=== PATIENT | female | born 1935 | race Caucasian/White ===

== ENCOUNTER 2021-10-20 10:45 | Emergency (ER) | payer OTHER, MEDICARE ==
--- OUTSIDE RECORDS SUMMARY | 2021-10-20 10:48 | XMS REPORT | Continuity of Care Document ---
:1935 Author Organization [facility] t Address [address] [place] [address] Care Team Providers Name Role Phone ELISHA ATKINSON Primary Care Physician Unavailable Goldfarb_R Attending Clinician Unavailable Ramesh Attending Clinician [phone] Julieth FLOOD Attending Clinician Unavailable Goldfarb_R Admitting Clinician Unavailable Payers Payer Name Policy Type Policy Number Effective Date Expiration Date S claudy MEDICARE [place]: [id number] 2002 [place] 00:00:00 [facility] [id number] 2018 OPTIONS (MEDICARE 00:00:00 SUPPLEMENT) Problems This patient has no known problems. Allergies, Adverse Reactions, Alerts Allergy Allergy Status Severity Reaction(s) Onset Inactive Treating Comm ents Source Name Type Date Date Clinician MORPHINE DRUG Active Hallucinates Un lulu INGREDI 01-05 [facility] 00[facility]00: [place] [facility] Medications Ordered Filled Start Stop Current Ordering Indication Dosage Frequency Signature Comments Components Source Medication Medication Date Date Medication? Clinician (SIG) Name Name Macrobid Macrobid 2018-07 2019- No Grace [address] [facility] 206 12-13 Jamshid at bedtime Luke s - 00:00: 00:00 with food [facility] 00 [facility] Immunizations Ordered Filled Immunization Date Status Comments Sourc e Immunization Name Name FluAD FluAD 2018-06-03 Completed [facility] - 00:00:00 [facility] Outpatient [facility] Procedures This patient has no known procedures. Encounters Start End Encounter Admission Attending Care Care Encounter Source Date/Time Date/Time Type Type Clinicians Facility Department ID 2021-05-18 2021-05-18 Outpatient Goldfarb_R [facility] [id number] [facility] 04:40:00 04:40:00 [id number] [facility] 2021-05-12 2021-05-12 Outpatient Goldfarb_R [facility] [id number] [facility] 12:27:00 12:27:00 [id number] [facility] 2021-05-08 2021-05-08 Outpatient Goldfarb_R [facility] [id number] [facility] 10:44:00 10:44:00 [id number] [facility] 2021-05-08 2021-05-08 Outpatient Ramesh, [facility]U [facility] [id number] 00:00:00 00:00:00 Brandon [id number] 2020 2020 Outpatient Goldfarb_R [facility] [id number] [facility] 12:19:00 12:19:00 [id number] [facility] 2020-11-14 2020-11-14 Outpatient Goldfarb_R [facility] [id number] [facility] 11:11:00 11:11:00 [id number] [facility] 2020-11-14 2020-11-14 Outpatient Ramesh, [facility]U [facility]U [id number] 00:00:00 00:00:00 Brandon [id number] 2020-09-25 2020-09-25 Outpatient Ba FLOOD [facility] [id number] [facility] 09:10:00 17:24:47 MEGHAN [facility] 2020-08-28 2020-08-28 Outpatient Ba FLOOD [facility] [id number] [facility] 09:30:00 09:30:00 [facility] 2020-08-25 2020-08-25 Outpatient [facility] [id number] [facility] 14:00:00 14:00:00 [id number] [facility] 2020-06-15 2020-06-[address] [facility] [id number] [facility] 2019-06-08 2019-06-08 [facility] [id number] [facility] 08:42:00 08:42:00 t Specialty/U Jazmin kes - Specialty rology [facility] /Urology Clinic l Clinic Outpati ent Clinics 2019-06-05 2019-06-05 Outpatient Niya Núñez [id number] [facility] 13[facility]44[facility]00 13:44:[address] [facility] l Outpati ent Clinics 2019-06-01 2019-06-01 [facility] [id number] 11:00:00 11:00:00 t Specialty/U Jazmin kes - Specialty rology Memori [facility] /Urology Clinic l Clinic Outpati ent Clinics 2019-05-21 2019-05-21 [facility] [id number] [address] 17:23:00 17:23:00 t PodPoster s - Drive [facility] l Medicine Outpati ent Clinics 2019-05-21 2019-05-21 [facility] [id number] [address] 11:00:00 11:00:00 t PodPoster s - Fetch It [facility] l Medicine Outpati ent Clinics 2019-04-27 2019-04-27 [facility] [id number] 13:17:00 13:17:00 t Specialty/U Jazmin kes - Specialty rology Memori a /Urology Clinic l Clinic Outpati ent Clinics 2019-04-21 2019-04-21 [facility] [id number] 09:30:00 09:30:00 t Specialty/U Jazmin kes - Specialty rology Memori a /Urology Clinic l Clinic Outpati ent Clinics 2019-03-31 2019-03-31 [facility] [id number] [facility] [address] 11:00:00 11:00:00 t PodPoster s - [facility] l Medicine Outpati ent Clinics 2019-03-11 2019-03-11 [facility] [id number] 10:30:00 10:30:00 t Specialty/U Jazmin kes - Specialty rology Memori a /Urology Clinic l Clinic Outpati ent Clinics 2019-03-05 2019-03-05 [facility] [id number] 09:40:00 09:40:00 t Project Bionic [facility] Outpati ent Clinics 2019-01-20 2019-01-20 [facility] [id number] 10:00:00 10:00:00 t Specialty/U Jazmin kes - Specialty rology Memori a /Urology Clinic l Clinic Outpati ent Clinics 2018-12-22 2018-12-22 [facility] [id number] 11:45:00 11:45:00 t Specialty/U Jazmin kes - Specialty rology Memori a /Urology Clinic l Clinic Outpati ent Clinics 2018-12-11 2018-12-11 [facility] [id number] 11:00:00 11:00:00 t Specialty/U Jazmin kes - Specialty rology Memori [facility] /Urology Clinic l Clinic Outpati ent Clinics 2018-12-02 2018-12-02 [facility] [id number] 09:00:00 09:00:00 t Project Bionic [facility] Outpati ent Clinics 2018-11-16 2018-11-16 [facility] [id number] 11:12:00 11:12:00 t Urgent Ur[facility] 2018-11-16 2018-11-16 [facility] [id number] 10:10:00 10:10:00 t Urgent Urgent Care L [facility] - Care [facility] l Outpati ent Clinics 2018-11-16 2018-11-16 [facility] [id number] 09:15:00 09:15:00 t Urgent Urgent Care L u[facility] - Care Clinic [facility] l Outpati ent Clinics 2018-09-02 2018-09-02 [facility] [id number] 10:00:00 10:00:00 t [employer] [facility] Medicine Medicine Outpati ent Clinics 2018-08-16 2018-08-16 [facility] [id number] [facility] 10:15:00 10:15:00 t Urgent Urgent Care L u[facility] - Care Clinic [facility] Clinic l Outpati ent Clinics 2018-08-12 2018-08-12 [facility] [id number] 15:01:00 15:01:00 t [employer]ley [employer] [facility] Medicine Outpati ent Clinics 2018-08-12 2018-08-12 [facility] [id number] 10:30:00 10:30:00 t [employer] [facility] Medicine Outpati ent Clinics 2018-08-07 2018-08-07 [facility] [id number] 14:42:00 14:42:00 t Urgent Urgent Care L [facility] - Care Clinic [facility] Clinic l Outpati ent Clinics 2018-08-07 2018-08-07 [facility] [id number] [facility] 14:08:00 14:08:00 t Urgent Urgent Care L u[facility] - Care Clinic [facility] Clinic l Outpati ent Clinics 2018-06-03 2018-06-03 [facility] [id number] [facility] 09:30:00 09:30:00 t [employer] [facility] Medicine Outpati ent Clinics 2018-03-06 2018-03-06 [facility] [id number] 18:41:00 18:41:00 t [employer] [facility] Medicine Medicine Outpati ent Clinics 2018-03-04 2018-03-04 [facility] [id number] 09:45:00 09:45:00 t Crowley [employer] s - Fetch It [facility] Medicine Outpati ent Clinics 2017-12-04 2017-12-04 [facility] [id number] 10:30:00 10:30:00 t Crowley [employer] s - Drive [facility] Medicine Outpati ent Clinics 2017-12-04 2017-12-04 [facility] [id number] [facility] 10:30:00 10:30:00 t [employer] [facility] Medicine Outpati ent Clinics Results This patient has no known results.
--- NOTE | 2021-10-20 11:50 | ER ---
Nurse's Notes [facility] Name: Mehreen Love Age: 85 yrs Sex: Female : 1935 Arrival Date: 10/20/2021 Time: 10:50 Bed 12 Private MD: Diagnosis: Acute pharyngitis, unspecified Presentation: 10/20 10:57 Chief complaint: Patient states: has a real raspy throat , has been around someone who iw had strep throat. Coronavirus screen: At this time, the client does not indicate any symptoms associated with coronavirus-19. Ebola Screen: Patient negative for fever greater than or equal to 101.5 degrees Fahrenheit, and additional compatible Ebola Virus Disease symptoms Patient denies exposure to infectious person. Patient denies travel to an Ebola-affected area in the 21 days before illness onset. No symptoms or risks identified at this time. Initial Sepsis Screen: Does the patient meet any 2 criteria? No. Patient's initial sepsis screen is negative. Does the patient have a suspected source of infection? No. Patient's initial sepsis screen is negative. Risk Assessment: Do you want to hurt yourself or someone else? Patient reports no desire to harm self or others. Onset of symptoms was October 19, 2021. 10:57 Method Of Arrival: Ambulatory iw 10:57 Acuity: SEPIDEH 4 iw Historical: - Allergies: 10:58 No Known Allergies; iw - PMHx: 10:58 Diabetes - NIDDM; Hypertension; iw - Immunization history:: Adult Immunizations up to date. - Social history:: Smoking status: . Screenin:10 Abuse screen: Denies threats or abuse. Denies injuries from another. Nutritional ss screening: No deficits noted. Tuberculosis screening: Never had TB. Fall Risk None identified. Assessment: 11:11 General: Appears in no apparent distress. comfortable, Behavior is calm, cooperative, ss Denies fever. Pain: Complains of pain in throat. Neuro: Level of Consciousness is awake, alert, obeys commands, Oriented to person, place, time, situation. Cardiovascular: Capillary refill < 3 seconds is brisk in bilateral fingers. Respiratory: Airway is patent Respiratory effort is even, unlabored, Respiratory pattern is regular, symmetrical. EENT: Oral mucosa is moist. Throat is clear. Derm: Skin is intact, is healthy with good turgor, Skin is dry, Skin is pink, warm \T\ dry. normal. Musculoskeletal: Circulation, motion, and sensation intact. Range of motion: intact in all extremities, Swelling absent. 11:41 Reassessment: Patient appears in no apparent distress at this time. Patient and/or iw family updated on plan of care and expected duration. Pain level reassessed. Patient is alert, oriented x 3, equal unlabored respirations, skin warm/dry/pink. Vital Signs: 10:57 BP 132 / 83; Pulse 77; Resp 16; Temp 98.7; Pulse Ox 98% on R/A; iw ED Course: 10:50 Patient arrived in ED. ds1 10:53 Mick Smith [facility] 10:53 Obi Chau MD is Attending Physician. [facility] 10:58 Triage completed. iw 10:58 Arm band placed on. iw 11:09 Alley Nolan, RICHELLE is Primary Nurse. ss 11:10 Patient has correct armband on for positive identification. Bed in low position. ss 11:56 No provider procedures requiring assistance completed. Patient did not have IV access ss during this emergency room visit. Administered Medications: No medications were administered Outcome: 11:49 Discharge ordered by . [facility] 11:56 Discharged to home ambulatory, with family. ss 11:56 Condition: good 11:56 Discharge instructions given to patient, family, Instructed on discharge instructions, follow up and referral plans. medication usage, Demonstrated understanding of instructions, follow-up care, medications, Prescriptions given X 1. 11:56 Patient left the ED. ss Signatures: Mick Smith PA PA jmm Sanford, Demi ds1 Rosey Fleming RN RN Alley Nolan RN RN ss
--- NOTE | 2021-10-20 11:50 | EDPHYS ---
Physician Documentation [facility] Name: Mehreen Love Age: 85 yrs Sex: Female : 1935 Arrival Date: 10/20/2021 Time: 10:50 Bed 12 Private MD: LORNE Physician Obi Chau HPI: 10/20 11:26 This 85 yrs old Female presents to ER via Ambulatory with complaints of Sore Throat. [facility] 11:26 The patient presents with sore throat. The patient describes throat pain as raw. Onset: jmm The symptoms/episode began/occurred gradually, 1 day(s) ago. Modifying factors: The symptoms are alleviated by nothing, the symptoms are aggravated by nothing. Associated signs and symptoms: Pertinent negatives fever. Patient states her son was recently diagnosed with strep. Denies sob. Historical: - Allergies: :58 No Known Allergies; iw - PMHx: :58 Diabetes - NIDDM; Hypertension; iw - Immunization history:: Adult Immunizations up to date. - Social history:: Smoking status: . ROS: 11:26 Constitutional: Negative for fever, chills, and weight loss. jmm 11:26 ENT: Positive for sore throat. 11:26 All other systems are negative. Exam: 11:26 Constitutional: This is a well developed, well nourished patient who is awake, alert, jmm and in no acute distress. Head/Face: atraumatic. Eyes: EOMI, no conjunctival erythema appreciated 11:26 Chest/axilla: Normal chest wall appearance and motion. Cardiovascular: Regular rate and rhythm. No edema appreciated Respiratory: Normal respirations, no respiratory distress appreciated Abdomen/GI: Non distended, soft Back: Normal ROM Skin: General appearance color normal MS/ Extremity: Moves all extremities, no obvious deformities appreciated, no edema noted to the lower extremities Neuro: Awake and alert Psych: Behavior is normal, Mood is normal, Patient is cooperative and pleasant 11:26 ENT: Posterior pharynx: Airway: normal, Tonsils: Uvula: midline, erythema, that is moderate. Vital Signs: 10:57 BP 132 / 83; Pulse 77; Resp 16; Temp 98.7; Pulse Ox 98% on R/A; iw MDM: 11:00 Patient medically screened. [facility] 11:28 Data reviewed: vital signs, nurses notes. Counseling: I had a detailed discussion with [facility] the patient and/or guardian regarding: the historical points, exam findings, and any diagnostic results supporting the discharge/admit diagnosis. 11:48 Counseling: I had a detailed discussion with the patient and/or guardian regarding: the jmm need for outpatient follow up, to return to the emergency department if symptoms worsen or persist or if there are any questions or concerns that arise at home. ED course: Patient is alert and non toxic in appearance in the ED. Advised to follow up with pcp and otherwise given strict return precautions. patient/family understood and agrees with the plan of care. . Administered Medications: No medications were administered Disposition Summary: 10/20/21 11:49 Discharge Ordered Location: Home [facility] Condition: Stable [facility] Diagnosis - Acute pharyngitis, unspecified [facility] Followup: [facility] - With: Private Physician - When: 2 - 3 days - Reason: Recheck today's complaints, Continuance of care, Re-evaluation by your physician Discharge Instructions: - Discharge Summary Sheet [facility] - Pharyngitis [facility] Forms: - Medication Reconciliation Form [facility] - Thank You Letter [facility] - Antibiotic Education [facility] - Prescription Opioid Use [facility] Prescriptions: - Amoxicillin 875 mg Oral Tablet - take 1 tablet by ORAL route every 12 hours for 10 days; 20 tablet; Refills: 0, [facility] Product Selection Permitted Signatures: Obi Chau MD MD cha Mickail, Joel, PA PA [facility] Rosey Fleming, RN Alley Sinha RN RN ss
[2021-10-20 12:01] VITALS: BP 132/83; TEMP 98.7; O2SAT 98
== END 2021-10-20 11:56 | disposition home or self-care (01) ==
LOC: ER 10:45
DX: J02.9 Acute pharyngitis, unspecified (principal); E11.9 Type 2 diabetes mellitus without complications; I10 Essential (primary) hypertension
CPT/HCPCS: 99282

== ENCOUNTER 2023-10-30 13:04 | Emergency (ER) | payer OTHER, MEDICARE ==
[2023-10-30 13:42] LABS: PT Prothrombin Time 11.7 SECONDS (9.5-12.5); Protime INR 1.07
[2023-10-30 13:51] LABS: Absolute Basophils 0.1 K/uL (0-0.5); Absolute Eosinophils 0.3 K/uL (0-0.5); Absolute Lymphocytes (CBC) 0.9 K/uL (0.7-4.9); Absolute Monocytes 0.5 K/uL (0.1-1.3); Absolute Neutrophil 6.1 K/uL (1.8-8.0); Basophils % 0.8 % (0-1.3); Eosinophils % 3.3 % (0-4.4); Hematocrit 38.1 % (36.0-45.0); Hemoglobin 11.7 g/dL (12.0-15.0); Lymphocytes % 11.3 % (15.3-44.8); MCH 26.2 pg (27.0-35.0); MCHC 30.7 g/dL (32.0-36.0); MCV 85.6 fL (80-100); MPV 7.8 fL (7.6-11.3); Monocytes % 6.5 % (3.3-12.3); Neutrophils % 78.1 % (41.7-73.7); Platelets 479 thou/uL (152-406); RBC Red Blood Cell Count 4.45 M/uL (3.86-4.86); Red Cell Distribution Width 17.2 % (12.1-15.2)
--- NOTE | 2023-10-30 14:03 | RAD REPORT ---
EXAM DESCRIPTION: CT - Head C Spine Cap Wo Con - 10/30/2023 1:44 pm CLINICAL HISTORY: Trauma, head and neck injury. Chest, abdomen and pelvis pain. TRAUMA COMPARISON: No comparisons TECHNIQUE: CT head without contrast. CT cervical spine without contrast with coronal and sagittal reformatted images. CT chest, abdomen and pelvis without contrast with coronal and sagittal reformatted images of the [facility]. All CT scans are performed using dose optimization technique as appropriate and may include automated exposure control or mA/KV adjustment according to patient size. FINDINGS: CT HEAD WITHOUT CONTRAST: No intracranial hemorrhage, hydrocephalus or extra-axial fluid collection. Moderate generalized brain atrophy is present with moderate periventricular and deep white matter chronic microvascular ischemi c changes. No areas of brain edema or midline shift. Left vertebral atherosclerosis. The paranasal sinuses and mastoids are clear. The calvarium is intact. CT CERVICAL SPINE WITHOUT CONTRAST: No fracture or subluxation. Multilevel degenerative changes are present lower cervical levels. The de generative anterolisthesis is present of C5 on 6. The prevertebral soft tissues are normal in thickne ss. CT CHEST, ABDOMEN, PELVIS WITHOUT CONTRAST: NOTE: Lack of contrast is a significant limitation in the assessment of trauma related findings. Spec ifically, solid organ, vascular and bowel evaluation is significantly limited. The lungs are clear.Large bulky calcified lymph nodes is seen in the mediastinum and both hilar regio ns. TheNo pneumothorax or pericardial/pleural fluid. No evidence of intra-abdominal visceral injury, free fluid or free air is seen within the above detai led limitations. No concerning pelvic findings. Moderate fecal retention. No fractures. IMPRESSION: Negative for acute traumatic findings within the above detailed limitations.
[2023-10-30 14:05] LABS: Anion Gap 5.3 mEq/L (5.0-15.0); Potassium 4.3 mEq/L (3.5-5.1)
[2023-10-30] MEDS ORDERED: MORPHINE 4 MG/ML SYR ONE ×2 (14:10→15:18)
--- NOTE | 2023-10-30 14:11 | RAD REPORT ---
EXAM DESCRIPTION: RAD - Knee Right 2 View - 10/30/2023 2:06 pm CLINICAL HISTORY: trauma Fall, pain COMPARISON: Knee Right 3 View dated 12/08/2009 FINDINGS: Comminuted fracture is seen of the distal femur above the level of a total knee arthroplas ty. There is significant angulation present of the fracture fragments. Heavy atherosclerosis.
--- NOTE | 2023-10-30 15:01 | EDPHYS ---
Physician Documentation [facility] Name: Mehreen Love Age: 87 yrs Sex: Female : 1935 Arrival Date: 10/30/2023 Time: 13:04 Bed 3 Private MD: ED Physician Julius Shaw HPI: 10/29 14:53 This 87 yrs old Female presents to ER via EMS with complaints of Fall Injury, Knee Pain.3 14:53 87-year-old female with history of hypertension, dementia, diabetes now presents to the 3 ED with right knee pain after mechanical fall at home while bathing. Family states that they stepped away for a minute and patient decided to get up after which she fell. Patient denies headache, head injury or any other injury other than her right knee. No loss of consciousness reported. Patient denies headache, neck pain, chest pain, back pain, shortness of breath, abdominal pain or any other extremity pain other than the right knee. ROS otherwise negative.. Historical: - Allergies: 13:09 No Known Allergies; kc6 - PMHx: 13:09 Diabetes - NIDDM; Hypertension; Dementia; Alzheimer's disease; kc6 - PSHx: 13:09 vocal cord surgery; knee replacement bilaterally (en); kc6 - Immunization history:: Adult Immunizations unknown. - Infectious Disease History:: Denies. - Social history:: Smoking status: unknown. ROS: 14:57 Constitutional: Negative for fever, chills, and weight loss, Eyes: Negative for injury, sp3 pain, redness, and discharge, Neck: Negative for injury, pain, and swelling, Cardiovascular: Negative for chest pain, palpitations, and edema, Respiratory: Negative for shortness of breath, cough, wheezing, and pleuritic chest pain, Abdomen/GI: Negative for abdominal pain, nausea, vomiting, diarrhea, and constipation, Back: Negative for injury and pain, Skin: Negative for injury, rash, and discoloration, Neuro: Negative for headache, weakness, numbness, tingling, and seizure, Psych: Negative for depression, anxiety, suicide ideation, homicidal ideation, and hallucinations, Allergy/Immunology: Negative for hives, rash, and allergies, Endocrine: Negative for neck swelling, polydipsia, polyuria, polyphagia, and marked weight changes, 14:57 All other systems are negative, Exam: 14:58 Constitutional: This is a well developed, well nourished patient who is awake, alert, sp3 and in no acute distress. Head/Face: Normocephalic, atraumatic. Eyes: Pupils equal round and reactive to light, extra-ocular motions intact. Lids and lashes normal. Conjunctiva and sclera are non-icteric and not injected. Cornea within normal limits. Periorbital areas with no swelling, redness, or edema. Neck: Trachea midline, no thyromegaly or masses palpated, and no cervical lymphadenopathy. Supple, full range of motion without nuchal rigidity, or vertebral point tenderness. No Meningismus. Chest/axilla: Normal chest wall appearance and motion. Nontender with no deformity. No lesions are appreciated. Cardiovascular: Regular rate and rhythm with a normal S1 and S2. No gallops, murmurs, or rubs. Normal PMI, no JVD. No pulse deficits. Respiratory: Lungs have equal breath sounds bilaterally, clear to auscultation and percussion. No rales, rhonchi or wheezes noted. No increased work of breathing, no retractions or nasal flaring. Abdomen/GI: Soft, non-tender, with normal bowel sounds. No distension or tympany. No guarding or rebound. No evidence of tenderness throughout. Back: No spinal tenderness. No costovertebral tenderness. Full range of motion. Skin: Warm, dry with normal turgor. Normal color with no rashes, no lesions, and no evidence of cellulitis. Neuro: Awake and alert, GCS 15, oriented to person, place, time, and situation. Cranial nerves II-XII grossly intact. Motor strength 5/5 in all extremities. Sensory grossly intact. Cerebellar exam normal. Normal gait. Psych: Awake, alert, with orientation to person, place and time. Behavior, mood, and affect are within normal limits. 14:58 Musculoskeletal/extremity: Deformity and edema noted to the right knee. Deformities at distal femur. Distal neurovascular exam is normal.. Vital Signs: 13:07 BP 178 / 87; Pulse 68; Resp 16 S; Pulse Ox 95% on R/A; Weight 63.5 kg (R); Height 5 ft. kc6 7 in. (R); 15:26 BP 123 / 109; Pulse 62; Resp 18; Pulse Ox 99% ; Pain 10/10; ko1 15:40 BP 154 / 73; Pulse 61; Resp 18 S; Pulse Ox 97% on R/A; kc6 16:07 BP 131 / 71; Pulse 63; Resp 16 S; Pulse Ox 92% on R/A; kc6 13:07 Body Mass Index 21.93 (63.50 kg, 170.18 cm) kc6 15:26 Pain Scale: Adult ko1 MDM: 13:13 Patient medically screened. sp3 14:59 Data reviewed: vital signs, nurses notes, EMS record, lab test result(s), radiologic sp3 studies. ED course: 87-year-old female with mechanical fall and distal femur fracture comminuted just proximal to the hardware. CT trauma gram is negative. I discussed the case and sent x-ray photos to Dr. Lee who after reviewing states that patient will need to be transferred due to hardware and complexity of the case that is required. After discussing with family, they prefer [facility] and we will attempt their first before transfer.. 10/29 13:14 Order name: Type And Screen; Complete Time: 14:53 sp3 10/29 13:14 Order name: Basic Metabolic Panel; Complete Time: 14:12 sp3 10/29 13:14 Order name: CBC with Diff; Complete Time: 14:05 sp3 10/29 13:14 Order name: PT-INR; Complete Time: 14:05 sp3 10/29 13:14 Order name: CT Traumagram (Head C Spine CAP wo con); Complete Time: 14:05 sp3 10/29 14:05 Order name: Knee Right 2 View; Complete Time: 14:12 EDMS 10/29 13:14 Order name: Labs collected and sent; Complete Time: 13:33 sp3 Administered Medications: 14:15 Drug: morphine IVP or IV 4 mg IVP once over 4 mins Route: IVP; Infused Over: 4 mins; kc6 Site: left antecubital; 14:52 Follow up: Response: No adverse reaction; RASS: Alert and Calm (0) kc6 15:22 Drug: morphine IVP or IV 4 mg IVP once over 4 mins Route: IVP; Infused Over: 4 mins; ko1 Site: left antecubital; 15:37 Follow up: Response: No adverse reaction; Pain is decreased; RASS: Alert and Calm (0) ko1 16:31 Drug: HYDROmorphone IVP 1 mg IVP once Route: IVP; Site: left antecubital; kc6 16:45 Follow up: Response: No adverse reaction; Pain is decreased; RASS: Alert and Calm (0) kc6 Disposition Summary: 10/30/23 15:01 Transfer Ordered Notes: Transfer Location: [facility]-System sp3 Reason: Higher level of care sp3 Condition: Stable sp3 Problem: new sp3 Symptoms: have worsened sp3 Accepting Physician: Trauma team(10/30/23 17:42) kc6 Diagnosis - Comminuted distal femur fracture, mechanical fall sp3 Forms: - Medication Reconciliation Form sp3 - SBAR form sp3 Signatures: Dispatcher [employer] EDMS Julius Shaw MD MD sp3 Ladonna Grimes RN RN kc6 Gala Bender RN RN ko1 Corrections: (The following items were deleted from the chart) 13:15 13:15 TYPE AND SCREEN+BB.LAB.BRZ ordered. EDMS EDMS 13:15 13:15 Head C Spine Cap Wo Con+CT.RAD.BRZ ordered. EDMS EDMS 13:15 13:15 Knee Right 3 View+RAD.RAD.BRZ ordered. EDMS EDMS 13:15 13:15 BASIC METABOLIC PANEL+C.LAB.BRZ ordered. EDMS EDMS 13:15 13:15 CBC+H.LAB.BRZ ordered. EDMS EDMS 13:15 13:15 PROTIME (+INR)+COAG.LAB.BRZ ordered. EDMS EDMS 17:42 15:01 Trauma team sp3 kc6
--- NOTE | 2023-10-30 15:01 | ER ---
Nurse's Notes [facility] Name: Mehreen Love Age: 87 yrs Sex: Female : 1935 Arrival Date: 10/30/2023 Time: 13:04 Bed 3 Private MD: Diagnosis: Comminuted distal femur fracture, mechanical fall Presentation: 10/29 13:07 Chief complaint: EMS states: pts family was giving her a shower when they stepped away kc6 for a moment. when family came back pt had fallen out of her shower chair and her right leg bent was behind her. 100mcg of IV fentanyl given en route by EMS. Coronavirus screen: At this time, the client does not indicate any symptoms associated with coronavirus-19. Ebola Screen: No symptoms or risks identified at this time. Initial Sepsis Screen: Does the patient meet any 2 criteria? No. Patient's initial sepsis screen is negative. Does the patient have a suspected source of infection? No. Patient's initial sepsis screen is negative. Risk Assessment: Do you want to hurt yourself or someone else? Patient reports no desire to harm self or others. Onset of symptoms was October 30, 2023. 13:07 Acuity: SEPIDEH 3 kc6 13:07 Method Of Arrival: EMS: [facility] ko1 Triage Assessment: 13:09 General: Appears in no apparent distress. comfortable, well groomed, well developed, kc6 Behavior is calm, cooperative, appropriate for age. Pain: Complains of pain in right knee. EENT: No signs and/or symptoms were reported regarding the EENT system. Neuro: Level of Consciousness is awake, alert, obeys commands, Oriented to person, place, situation, Appropriate for age. Cardiovascular: Capillary refill < 3 seconds. Respiratory: Airway is patent Trachea midline Respiratory effort is even, unlabored, Respiratory pattern is regular, symmetrical. GI: No signs and/or symptoms were reported involving the gastrointestinal system. : No signs and/or symptoms were reported regarding the genitourinary system. Derm: No signs and/or symptoms reported regarding the dermatologic system. Skin is intact, is healthy with good turgor, Skin is pink, warm \T\ dry. Musculoskeletal: Capillary refill < 3 seconds, Range of motion: limited in right knee. Historical: - Allergies: 13:09 No Known Allergies; kc6 - PMHx: 13:09 Diabetes - NIDDM; Hypertension; Dementia; Alzheimer's disease; kc6 - PSHx: 13:09 vocal cord surgery; knee replacement bilaterally (en); kc6 - Immunization history:: Adult Immunizations unknown. - Infectious Disease History:: Denies. - Social history:: Smoking status: unknown. Screenin:10 [facility] [place] ED Fall Risk Assessment (Adult) History of falling in the last 3 months, kc6 including since admission Yes- single mechanical fall (1 pt) Confusion or Disorientation Yes (5 pts) Intoxicated or Sedated No (0 pts) Impaired Gait Yes (1 pt) Mobility Assist Device Used Yes (1 pt) Altered Elimination No (0 pt) Score/Fall Risk Level 3 or more points = High Risk. Abuse screen: Denies threats or abuse. Denies injuries from another. Nutritional screening: No deficits noted. Tuberculosis screening: No symptoms or risk factors identified. Assessment: 13:11 Reassessment: please see triage. kc6 14:11 Reassessment: Patient appears in no apparent distress at this time. No changes from kc6 previously documented assessment. Patient and/or family updated on plan of care and expected duration. Pain level reassessed. Patient states symptoms have not improved. 15:11 Reassessment: Patient appears in no apparent distress at this time. No changes from kc6 previously documented assessment. Patient and/or family updated on plan of care and expected duration. Pain level reassessed. Patient states symptoms have not improved. 16:06 Reassessment: nurse to nurse report given to RICHELLE Vu at [facility]. kc6 16:45 Reassessment: Patient appears in no apparent distress at this time. No changes from kc6 previously documented assessment. Patient and/or family updated on plan of care and expected duration. Pain level reassessed. Vital Signs: 13:07 BP 178 / 87; Pulse 68; Resp 16 S; Pulse Ox 95% on R/A; Weight 63.5 kg (R); Height 5 ft. kc6 7 in. (R); 15:26 BP 123 / 109; Pulse 62; Resp 18; Pulse Ox 99% ; Pain 10/10; ko1 15:40 BP 154 / 73; Pulse 61; Resp 18 S; Pulse Ox 97% on R/A; kc6 16:07 BP 131 / 71; Pulse 63; Resp 16 S; Pulse Ox 92% on R/A; kc6 13:07 Body Mass Index 21.93 (63.50 kg, 170.18 cm) kc6 15:26 Pain Scale: Adult ko1 ED Course: 13:07 Patient arrived in ED. kc6 13:09 Triage completed. kc6 13:09 Arm band placed on. kc6 13:10 Maintain EMS IV. Dressing intact. Good blood return noted. Site clean \T\ dry. Gauge \T\ simi 6 site: 18G LAC. 13:11 Ladonna Grimes, RICHELLE is Primary Nurse. kc6 13:11 Patient has correct armband on for positive identification. Placed in gown. Bed in low kc6 position. Call light in reach. Side rails up X2. Client placed on continuous cardiac and pulse oximetry monitoring. NIBP monitoring applied. Warm blanket given. Pillow given. 13:13 Julius Shaw MD is Attending Physician. sp3 13:33 IV discontinued, intact, bleeding controlled, No redness/swelling at site. Pressure kc6 dressing applied. Inserted saline lock: 20 gauge in left antecubital area, using aseptic technique. Blood collected. 13:46 CT Traumagram (Head C Spine CAP wo con) In Process Unspecified. EDMS 14:05 Knee Right 2 View In Process Unspecified. EDMS 14:37 Door closed. Noise minimized. Head of bed elevated. ko1 15:06 initiated transfer to [facility]. bd 15:26 No provider procedures requiring assistance completed. ko1 15:51 pt accepted in transfer to [facility] ER by dr Orlando Taylor, admin approval given bd by Taryn Tejeda. 16:38 pt will be transported to [facility] by ems. bd Administered Medications: 14:15 Drug: morphine IVP or IV 4 mg IVP once over 4 mins Route: IVP; Infused Over: 4 mins; kc6 Site: left antecubital; 14:52 Follow up: Response: No adverse reaction; RASS: Alert and Calm (0) kc6 15:22 Drug: morphine IVP or IV 4 mg IVP once over 4 mins Route: IVP; Infused Over: 4 mins; ko1 Site: left antecubital; 15:37 Follow up: Response: No adverse reaction; Pain is decreased; RASS: Alert and Calm (0) ko1 16:31 Drug: HYDROmorphone IVP 1 mg IVP once Route: IVP; Site: left antecubital; kc6 16:45 Follow up: Response: No adverse reaction; Pain is decreased; RASS: Alert and Calm (0) kc6 Medication: 15:26 VIS not applicable for this client. ko1 Outcome: 15:01 ER care complete, transfer ordered by . ludin 16:45 Patient left the ED. kc6 16:45 Transferred by ground EMS to [facility], Transfer form kc6 completed. Note: report called to RICHELLE Vu 16:45 Condition: good 16:45 Instructed on the need for transfer, Signatures: Dispatcher [employer] EDMS Hope Josue Setul, MD MD sp3 Ladonna Grimes RN RN kc6 Gala Bender RN RN ko1 Corrections: (The following items were deleted from the chart) 13:27 13:07 Method Of Arrival: EMS: [facility] 6 ko1 17:50 17:42 Patient left the ED. kc6 kc6
[2023-10-30] MEDS ORDERED: HYDROMORPHONE HCL 1 MG/ML INJ ONE (16:26)
[2023-10-30 18:43] VITALS: BP 131/71; O2SAT 92
== END 2023-10-30 17:42 | disposition short-term general hospital (02) ==
LOC: ER 13:04
DX: S72.491A Other fracture of lower end of right femur, initial encounter for closed fracture (principal); W18.30XA Fall on same level, unspecified, initial encounter; G30.9 Alzheimer's disease, unspecified; F02.80 Dementia in other diseases classified elsewhere, unspecified severity, without behavioral disturbance, psychotic disturbance, mood disturbance, and anxiety; I10 Essential (primary) hypertension; Z96.653 Presence of artificial knee joint, bilateral
CPT/HCPCS: 85025; 80048; 36415; 86900; 86850; 85610; 86901; 70450; 71250; 72125; 73560; 96375; 96374; 99285; J1170